=== PATIENT | male | born 1995 | race Caucasian/White ===

== ENCOUNTER → 2020-12-06 | Outpatient (CLI) | payer OTHER | LOC: LAB 18:57 | DX: Z20.822 Contact with and (suspected) exposure to COVID-19 (principal) ==

== ENCOUNTER → 2021-03-13 | Outpatient (CLI) | payer OTHER | LOC: LAB 17:59 | DX: Z20.822 Contact with and (suspected) exposure to COVID-19 (principal) ==

== ENCOUNTER → 2021-04-26 | Outpatient (CLI) | payer OTHER ==
[2021-04-26 13:34] LABS: URINE APPEARANCE CLOUDY; URINE COLOR LIGHT PINK
[2021-04-26 13:35] LABS: URINE BILIRUBIN NEGATIVE (NEGATIVE); URINE BLOOD 250 ery/uL (NEGATIVE); URINE GLUCOSE NEGATIVE (NEGATIVE); URINE KETONE NEGATIVE (NEGATIVE); URINE LEUKOCYTE ESTERASE NEGATIVE (NEGATIVE); URINE NITRATE NEGATIVE (NEGATIVE); URINE PROTEIN(semi-quant) TRACE (NEGATIVE); URINE UROBILINOGEN NORMAL (NORMAL); URINE WBC 0-1 /hpf (0-3)
== END ==
LOC: LAB 13:10
PROVIDERS: Nurse Practitioner Family
DX: R31.9 Hematuria, unspecified (principal)

== ENCOUNTER → 2021-06-26 | Outpatient (CLI) | payer OTHER | LOC: RAD 14:49 | DX: R10.31 Right lower quadrant pain (principal); R59.0 Localized enlarged lymph nodes ==